=== PATIENT | male | born 1970 | race Caucasian/White ===

== ENCOUNTER 2018-01-31 13:37 | Inpatient (IN) ==
[2018-01-31] MEDS ORDERED: 0.9 % Sodium Chloride 1,000 ML ONE ×3 (13:39→15:32)
[2018-01-31] MEDS ORDERED: *HR* Heparin 5,000 UNIT/ML VIAL IVP PRN ×2 (13:39→13:49)
[2018-01-31] MEDS ORDERED: Aspirin 81 MG TAB.CHEW PO ONE (13:39)
[2018-01-31] MEDS ORDERED: *HR* Heparin 5,000 UNIT/ML VIAL ONE (13:39)
[2018-01-31] MEDS ORDERED: *HR* Ticagrelor 90 MG TABLET PO ONE (13:39)
[2018-01-31] MEDS ORDERED: Aspirin 81 MG TAB.CHEW ONE (13:39)
[2018-01-31] MEDS ORDERED: *HR* Ticagrelor 90 MG TABLET ONE (13:39)
--- NOTE | 2018-01-31 13:43 | Emergency Department Note ---
Disposition Clinical Impression: STEMI (ST elevation myocardial infarction) Qualifiers: Involved coronary artery: unspecified coronary artery Qualified Code(s): I21.3 - ST elevation (STEMI) myocardial infarction of unspecified site Disposition: Admitted As Inpatient Condition: Critical General Adult HPI - General Chief complaint: ED Chest Pain Stated complaint: CHEST PAIN Time Seen by Provider: 01/31/18 13:38 Nursing Notes Reviewed: Yes Vital Signs Reviewed: Yes - Related Data Allergies Allergy/AdvReac Type Severity Reaction Status Date / Time No Known Allergies Allergy Verified 01/31/18 13:57 Course - Reevaluation(s) Reevaluation #1: Attestation note I did independently examine and verified the physical examination findings evaluation workup and disposition of this patient. We had independent face-to- face examination and discussion. The patient was seen with the emergency medicine resident Dr. Stiven Carroll I examined this patient and my medical decision-making was reviewed with the Resident Physician/PARTITION ASSEMBLER/PA. I agree with the documented findings, disposition and treatment plan as described except to the extent set forth below. Briefly: A 7-year-old male inmate at [facility] via EMS for "V. tach". Patient was initially complaining of chest pain had a run of V. tach became almost unresponsive he was shocked several times came back to sinus rhythm. Emergent EKG at bedside upon arrival here showed the patient was awake and alert but slightly altered mental status. EKG shows ST elevation of 2 mm in lead 2 and 3 , aVF was unreadable due to motion artifact. We contacted Dr. Jose Alvarez interventionalists on-call and he agreed to take the patient to the catheter lab. STEMI protocol was initiated. We have provided 30 minutes of critical care service for this patient. Time: 13:57 Vital Signs Temperature 97.9 F 01/31/18 13:38 Pulse Rate 86 01/31/18 13:38 Respiratory Rate 16 01/31/18 13:38 Blood Pressure 156/97 01/31/18 13:38 O2 Sat by Pulse Oximetry 98 01/31/18 13:38 Temperature 97.9 F 01/31/18 13:38 Pulse Rate 86 01/31/18 13:38 Respiratory Rate 16 01/31/18 13:38 Blood Pressure 156/97 01/31/18 13:38 O2 Sat by Pulse Oximetry 98 01/31/18 13:38 Oxygen Delivery Oxygen Delivery Nasal Cannula
--- NOTE | 2018-01-31 13:44 | Emergency Department Note ---
Disposition Clinical Impression: STEMI (ST elevation myocardial infarction) Qualifiers: Involved coronary artery: unspecified coronary artery Qualified Code(s): I21.3 - ST elevation (STEMI) myocardial infarction of unspecified site Disposition: Admitted As Inpatient Condition: Critical Time of Disposition: 13:55 Chest Pain HPI - General Chief Complaint: ED Chest Pain Stated Complaint: CHEST PAIN Time Seen by Provider: 01/31/18 13:38 Source: patient Mode of arrival: ambulatory Limitations: no limitations Vital Signs Reviewed: Yes Nursing Notes Reviewed: Yes - History of Present Illness HPI Narrative: Patient is a 47-year-old male with past medical history of depression, diabetes , hypertension, hyperlipidemia. He presents today via EMS from shelter with concern of inferior STEMI. According to the patient, he started having left jaw pain yesterday. This morning, he awoke with left-sided chest pain that radiated to his back. He also had some sweating with it but denies any other additional symptoms. He told the guards at the shelter that he was having pain. Upon workup at the shelter, EKG showed concern for inferior STEMI. Patient was given a nitroglycerin that helped relieve some of his pain. While in route, EMS states patient was given aspirin 325 mg but the patient states that he did not swallow any pills. He then went unresponsive and was shocked twice due to fine V. fib. Upon arrival to the ED, patient was in normal sinus rhythm and was conversing with us. Currently rates his chest pain as "low" but will not give me a number, will not describe the character for me. Denies any previous history of ND or stents. Denies any other nausea, vomiting, fevers, abdominal pain. - Related Data Allergies Allergy/AdvReac Type Severity Reaction Status Date / Time No Known Allergies Allergy Verified 01/31/18 13:57 All systems ED: reviewed and negative except as stated. Constitutional: Denies: fever Cardiovascular: Reports: chest pain. Denies: palpitations Respiratory: Reports: dyspnea. Denies: cough Gastrointestinal: Denies: abdominal pain, nausea, vomiting, diarrhea Integumentary: Denies: rash Neurological: Denies: headache, weakness, numbness Chest Pain PMH - Past Medical History Medical history: Reports: other Physical Exam - General Limitations: no limitations General appearance: alert, in no apparent distress - Head Head exam: atraumatic, normocephalic, normal inspection - Eye Eye exam: Present: normal appearance, PERRL, EOMI - ENT ENT exam: normal exam, normal oropharynx, mucous membranes moist - Neck Neck exam: Present: normal inspection, full ROM, trachea midline - Chest Chest inspection: Present: normal inspection, symmetric chest wall rise - Respiratory Respiratory exam: Present: normal lung sounds bilaterally - Cardiovascular Cardiovascular exam: Present: regular rate, normal rhythm, normal heart sounds - Abdominal Exam Abdominal exam: Present: soft, Non-Tender. Absent: tenderness, distention, guarding, rebound, rigidity - Extremities Exam Extremities exam: Present: normal inspection, full ROM. Absent: tenderness, pedal edema - Neurological Exam Neurological exam: Present: alert, oriented X3, CN II-XII intact. Absent: motor sensory deficit - Psychiatric Psychiatric exam: Present: normal affect, normal mood - Skin Skin exam: Present: warm, dry, intact, normal color Course Course Narrative: Blood pressure was elevated in 150s on presentation, recheck showed the systolic blood pressure in the 130s. The rest of the vitals were within normal limits. Patient was placed on power pack pads. Patient was in normal sinus rhythm on presentation. Bedside EKG did show ST elevation in leads 2, 3, aVF. We called STEMI alert. Patient was given heparin bolus dosing, [place] to 180 mg. We also gave aspirin 325. EMS states that they gave him aspirin while in route but the patient adamantly denies this. We talked with Dr. Alvarez with cardiology who will take the patient to the [facility]. Patient was stable upon discharge the [facility]. Vital Signs Temperature 97.9 F 01/31/18 13:38 Pulse Rate 86 01/31/18 13:38 Respiratory Rate 16 01/31/18 13:38 Blood Pressure 156/97 01/31/18 13:38 O2 Sat by Pulse Oximetry 98 01/31/18 13:38 Temperature 97.9 F 01/31/18 13:38 Pulse Rate 86 01/31/18 13:38 Respiratory Rate 16 01/31/18 13:38 Blood Pressure 156/97 01/31/18 13:38 O2 Sat by Pulse Oximetry 98 01/31/18 13:38 Oxygen Delivery Oxygen Delivery Nasal Cannula Chest Pain - MDM Narrative Medical decision making narrative: Blood pressure was elevated in 150s on presentation, recheck showed the systolic blood pressure in the 130s. The rest of the vitals were within normal limits. Patient was placed on power pack pads. Patient was in normal sinus rhythm on presentation. Bedside EKG did show ST elevation in leads 2, 3, aVF. We called STEMI alert. Patient was given heparin bolus dosing, [place] to 180 mg. We also gave aspirin 325. EMS states that they gave him aspirin while in route but the patient adamantly denies this. We talked with Dr. Alvarez with cardiology who will take the patient to the Wort Extractor. Patient was stable upon discharge the W[facility] Extractor. - Medical Records Medical records reviewed: Yes I reviewed the patient's medical records. - Lab Data Lab results reviewed: Yes I reviewed the patient's lab results. Result diagrams: 01/31/18 13:56 01/31/18 13:56 - Radiology Data Radiology results reviewed: Yes I reviewed the patient's radiology results. - EKG Data EKG attestation: Yes I reviewed and interpreted this EKG. EKG results narrative: 01/31/2018 at 13:35. Sinus rhythm. Rate 96. CA within normal limits. QRS 94. QTC 392. Mild left axis deviation. ST elevation in leads 2, 3, aVF. Positive STEMI inferior leads.
[2018-01-31] MEDS ORDERED: *HR* FentaNYL (PF) 250 MCG/5 ML VIAL ONE (13:45)
[2018-01-31] MEDS ORDERED: *HR* Midazolam HCl 5 MG/5 ML VIAL IVP ONE (13:45)
[2018-01-31] MEDS ORDERED: Heparin 25,000 UNIT/500 ML D5W 25,000 UNIT/500 ML BAG IVC SCH ×2 (13:45→14:00)
[2018-01-31] MEDS ORDERED: *HR* Heparin 5,000 UNIT/ML VIAL IVP ONE (13:49)
[2018-01-31 14:08] LABS: Basophils # 0.1 K/mcL (0.0-0.2); Basophils % 0.5 %; Eosinophils # 0.4 K/mcL (0.0-0.6); Eosinophils % 3.8 %; Hematocrit 42.9 % (37.5-50.1); Hemoglobin 14.1 g/dL (12.9-16.9); Immature Granulocytes % 0.5 % (0-4); Lymphocytes % 32.6 %; Mean Corpuscular HGB Conc 32.9 g/dL (31.6-35.5); Mean Corpuscular Hemoglobin 29.4 pg (28.0-33.3); Mean Corpuscular Volume 89.4 fL (83.0-100.0); Mean Platelet Volume 10.2 fL (9.4-12.4); Monocytes # 0.7 K/mcL (0.0-1.3); Monocytes % 7.7 %; Neutrophils # 5.1 K/mcL (1.6-8.9); Platelet Count 222 K/mcL (140-400); Red Cell Distribution Width 12.4 % (11.5-14.5); Segmented Neutrophils % 54.9 %
[2018-01-31] MEDS ORDERED: *HR* Bivalirudin 250 MG VIAL IVC ONE (14:10)
[2018-01-31 14:14] LABS: Prothrombin Time 10.7 Seconds (9.4-12.1)
[2018-01-31 14:16] LABS: Activated Partial Thrombo Time 87.4 Seconds (26.0-36.0)
[2018-01-31 14:37] LABS: BUN/Creatinine Ratio 17 (6-26); Blood Urea Nitrogen 15 mg/dL (6-20); Calcium 9.1 mg/dL (8.6-10.3); Carbon Dioxide 21 mEq/L (23-29); Chloride 106 mEq/L (98-107); Glucose 208 mg/dL (70-105); Magnesium 2.1 mg/dL (1.6-2.6); Osmolality,Calculated 291 (280-300); Potassium 4.1 mEq/L (3.5-5.1); Sodium 137 mEq/L (136-145); eGFR For African Americans > 60 (> 60); eGFR For Non-African Americans > 60 (> 60)
--- NOTE | 2018-01-31 15:02 | Pre-Sedation Evaluation ---
Pre-sedation evaluation - Pre-sedation checklist Date of procedure: 01/31/18 Procedure: left heart catheterization Recent Vitals: Last Vital Signs Temp 97.9 F 01/31/18 13:38 Pulse 86 01/31/18 13:38 Resp 16 01/31/18 13:38 BP 156/97 01/31/18 13:38 Pulse Ox 98 01/31/18 13:38 H&P (including ROS) documented in medical record: Yes Previous reaction to sedatives/anesthetics: No Dietary Status: No solid food in preceding 4 hrs and no liquid in preceding 2 hrs Airway Assessment: Patient can open mouth completely, TMJ function normal Dentition: No loose teeth or bridges Possible difficult airway: No ASA Classification *see protocol: CLASS IV-Severe systemic disease/constant threat to pt's life Plan of Care: Pt appropriate candidate for procedure/moderate/conscious sedation , Risks/benefits of procedure/sedation discussed w/ patient/family, If not NPO; Risk of intake outweiged by necessity to perform procedure
--- NOTE | 2018-01-31 15:09 | Invasive Diagnostic Lab Proc ---
Name: Theodore Donald Date of Study: 01/31/2018 Date: 1970 Ht: 75.2in Medical Record#: [id number] Age: 47 Wt: 224.87lb Gender: Male BSA: 2.31 Order #: [id number] BMI: 27.96 Physicians Procedure Physician: Fred Alvarez DO Referring MD: Referring MD: Staff Name Position Time In Sites, Nury RT (R) Monitor 02:16 PM Blake Pagan RN Fluid Jet Cutter Operator 02:16 PM Nadeem Cisneros RN Fluid Jet Cutter Operator 02:16 PM Denice Major RT Scrub 02:16 PM Indications Indication STEMI Procedures Performed Procedure PRQ CARD REVASC PA 1 VSL L HRT ARTERY/VENTRICLE ANGIO PRQ CARD STENT W/ANGIO ADDL Pre-Procedure Checklist Informed consent is complete signed and on chart. H&P is on chart. ID band is on and ID verified with patient. Patient NPO for procedure The procedure was described for the patient and questions were answered. ECG is on chart. Plan of Care Patient will tolerate the procedure without complications. Adequate level of comfort will be maintained. Hemodynamics will remain stable Patient will recover from procedure without complications. Respiratory function will be maintained. Cardiac rhythm will remain stable. Patient temperature will be maintained. Patient and/or family have verbalized understanding of the procedure. Patient Education Intravenous Access Time IV Size Location DC'd Fluid/Drip Rate Units RN 18g 1 1/4" Patent On Arrival Rt Antecubital Blake Pagan RN 20g 1 1/4" Patent On Arrival Lt Hand 0.9NaCl 25 ml/hr Blake Pagan RN Allergies No Known Allergies Vital Signs Time BP (mmHg) HR (bpm) O2 Sat. RR (bpm) LOC 02:17 PM / % 5 = Fully awake and oriented or at pre-proc level 02:10 PM 121 / 72 76 95 % 02:15 PM 115 / 59 71 95 % 02:18 PM 107 / 57 72 93 % 02:20 PM 112 / 64 77 96 % 02:25 PM 113 / 65 75 94 % 02:30 PM 108 / 59 75 96 % 02:35 PM 110 / 58 75 100 % 02:40 PM 112 / 61 80 97 % Procedural Medications Time Medication Dose Units Method Given By 02:06 PM Oxygen 2 L/min nasal cannula Blake Pagan RN 02:06 PM Versed 2 mg Intravenous Blake Pagan RN 02:17 PM Lidocaine 2% 10 ml Subcutaneous Fred Alvarez DO 02:16 PM Heparin 3000 units Intravenous Blake Pagan RN 02:37 PM Dopamine 5 mcg/kg/min Intravenous Blake Pagan RN ASA Classification: Emergent Procedure: ASA score is assumed Alireza Score Preprocedure Postprocedure Activity 2- Moves 4 extremities sustained head lift Activity 2- Moves 4 extremities sustained head lift Circulation 2- SBP +/= 20 points of pre-anesthetic level Circulation 2- SBP +/= 20 points of pre-anesthetic level Consciousness 2- Awake and alert oriented x 3 Consciousness 2- Awake and alert oriented x 3 O2 Saturation 2- Able to maintain O2 satruation of 92% on room air O2 Saturation 2- Able to maintain O2 satruation of 92% on room air Respiratory 2- Able to deep breathe and cough well Respiratory 2- Able to deep breathe and cough well Total Score 10 Total Score 10 Contrast Agent: Isovue Diagnostic Contrast: 150 ml Total Contrast: 150 ml Fluoro Dose: 1461 mGy Activated Clotting Time Time Seconds to Clot 02:24 PM 193 02:38 PM 400 Procedure Log Time Note Enter By 02:02 PM Pt arrived to feed mill lab technician 1 at 14:02 kk 02:02 PM Nury Praekh RT (R) Position: Monitor Time in: 14: 02:02 PM Blake Pagan RN Position: Fluid Jet Cutter Operator Time in: 14: 02:02 PM Nadeem Cisneros RN Position: Fluid Jet Cutter Operator Time in: 14:02 02:02 PM Denice Major RT Position: Scrub Time in: 14:02 02:02 PM Patient charges- Angio tray pack, Navilyst 3mm J, Pulse Oximetry and ACIST tubing and transducer kk 02:02 PM Case Delayed No kk 02:02 PM Physician arrived 14:02 02:02 PM Marcelo and greet completed kk 02:02 PM Procedure start 14:02 kk 02:06 PM PCI Status Emergency tsites 02:06 PM Time: 14:17 Patient comfortable and pain free: Yes [email or web address] 02:06 PM PCI Indication: Immediate PCI for STEMI tsites 02:06 PM Time: 14:06LOC: 5 = Fully awake and oriented or at pre-proc level [email or web address] 02:06 PM Clinical Presentation: STEMI or equivalent [email or web address] 02:06 PM Time out performed according to hospital policy kk 02: PM Time: 14:06 10 ml Lidocaine 2% to right groin Subcutaneous Given by Fred Alvarez DO kkner 02:06 PM Hair removed from procedure site in holding area using clippers. Bilateral groin prepped with Chloraprep by Nury Parekh (R), then patient was draped. Skin intact. kk 02: PM Time: 14:06 Oxygen on at 2 L/min per nasal cannula by Blake Pagan RN kk 02:06 PM Micro-Introducer Kit utilized for sheath placement tsites 02:06 PM Time: 14:06 Versed 2 mg Intravenous Given by Blake Pagan RN cheli 02:09 PM CathStat 02:09 PM Case Start 02:09 PM Vitals capture started with the following parameters, Patient=Adult, Interval=5 min, Initial Rwhskawq=274 mmHg, Deflation Rate=3 mmHg, Cuff placed on Right Arm 02:10 PM HR=76 bpm, XYLC=445/72 mmhg, SpO2=95 % 02:14 PM LCA angiography performed in multiple views. tsites 02:14 PM Access obtained by percutaneous puncture. 6Fr 10cm Terumo Jay sheath placed in right Femoral artery. [id number] tsites 02:14 PM 5Fr FL 4 catheter inserted over the wire [facility] tsites 02:14 PM 0.035 145cm Navilyst 3mmJ wire [id number] tsites 02:15 PM HR=71 bpm, CMTF=124/59 mmhg, SpO2=95.0 % 02:16 PM wire reinserted catheter removed tsites 02:17 PM NIBP STAT measurement started. 02:18 PM Catheter selectively placed in left ventricle tsites 02:18 PM HR=72 bpm, MCLQ=046/57 mmhg, SpO2=93 % 02:19 PM 6Fr JR 4 Runway guide catheter was used to cannulate the PCI vessel successfully. reused? No tsites 02:19 PM Pressure channel 2 zeroed. 02:19 PM Pressure channel 2 zeroed. 02:20 PM Recorded Pressure: LV, HR=77, Condition=Condition 1 (Left Ventricle) LV 84/52/80 02:20 PM Recorded Pressure: LV, Ao, HR=78, Condition=Condition 1 (Left Ventricle) LV 93/41/88, (Aorta) Ao 88/57/70 02:20 PM HR=77 bpm, OCSG=562/64 mmhg, SpO2=96 % 02:21 PM Bolus angiogram of left Ventricle complete: hand injection tsites 02:23 PM Inflation device was opened. tsites 02:23 PM Recorded Pressure: Ao, HR=77, Condition=Condition 1 (Aorta) Ao 85/59/71 02:23 PM RCA angiography performed in multiple views. tsites 02:24 PM At 14:24 the ACT was 193 seconds. tsites 02:24 PM Time: 14:24 Heparin 3000 units Intravenous Given by Blake Pagan RN tsites 02:24 PM 6Fr JL4 Runway guide catheter was used to cannulate the PCI vessel successfully. reused? No tsites 02:24 PM .014 ChoICE PT Extra Support 300cm guide wire across target lesion- successful. reused? No tsites 02:25 PM HR=75 bpm, QCTI=576/65 mmhg, SpO2=94.0 % 02:26 PM Guide wire removed intact. tsites 02:26 PM Guide catheter removed intact. tsites 02:27 PM 6Fr XB LAD 3.5 [place] Bright-Tip guide catheter was used to cannulate the PCI vessel successfully. reused? No tsites 02:27 PM guide wire reinserted tsites 02:30 PM HR=75 bpm, GRGS=869/59 mmhg, SpO2=96 % 02:34 PM 2.25mm x 12mm Synergy drug-eluting stent across target lesion- successful Lot #[id number] tsites 02:34 PM Stent deployed @ 12 abigail for 15 seconds tsites 02:35 PM HR=75 bpm, PBUK=249/58 mmhg, YeC0=194 % 02:35 PM Lesion found in Proximal Circumflex. Pre Stenosis: 80 Pre ELAINE Flow: 2: Partial Flow/Perfusion (> 1 but < 3) tsites 02:36 PM Lesion found in 1st Marginal. Pre Stenosis: 70 Pre ELAINE Flow: 3: Complete and Brisk Flow/Perfusion tsites 02:37 PM 2.5mm x 16mm Synergy drug-eluting stent across target lesion- successful Lot #[id number] tsites 02:37 PM Stent deployed @ 14 abigail for 15 seconds tsites 02:37 PM Time: 14:37 Dopamine 5 mcg/kg/min Intravenous Given by Blake Pagan RN Gordon pump tsites 02:38 PM At 14:38 the ACT was 400 seconds. tsites 02:40 PM Bolus angiogram of right Femoral complete: 2 ml/sec for a total of 4 mls tsites 02:40 PM HR=80 bpm, QRJZ=622/61 mmhg, SpO2=97 % 02:42 PM no labs prior to cath tsites 02:47 PM Procedure completed at 14:47 tsites 02:47 PM Did you address ELAINE flow and Dominance? Yes tsites 02:48 PM Sign out completed: Radiation Dose 1461 mGy Fluoro Time: 6.7 Isovue 370 - 200ml contrast 150 ml given by Fred Alvarez DO. Complications: NoneCardiac Rehab Consult needed: YesConfirmed administered medications: Yes tsites 02:48 PM Isovue 370 - 200ml,1 Bottle(s) used. tsites 02:48 PM Sheath left in place to be pulled on floor/holding areaV+Pad tsites 02:48 PM Estimated Blood Loss: less than 20cc tsites 02:48 PM Post ECG NSR tsites 02:50 PM Post Blood Pressure 112/61 tsites 02:50 PM 14:50 Post Pulses Bilateral DP & PT 2+ tsites 02:50 PM Information taught Cardiac Cath and PCI tsites 02:50 PM Education needs Procedure, Plan of Care, and Responsibilities of Patient in Care tsites 02:50 PM Learning barriers :None tsites 02:50 PM Education Methods Verbal tsites 02:50 PM Education evaluation Able to repeat information tsites 02:50 PM Site status No bleeding/hematoma - Rt Groin as reported by Denice Major RT at 14:50 tsites 02:50 PM Opsite applied tsites 02:52 PM Plavix, Effient or Brilinta given Yes in er tsites 02:52 PM Delay to floor No tsites 02:52 PM Patient out of room: 14:52 tsites 02:52 PM no family tsites 02:56 PM Report given to og BUSTAMANTE Pt taken to ICU Room #12. 14:56 tsites Complications Complication None Hemodynamics Pressures Site Systolic/A Wave Diastolic/V Wave Mean LV 84 52 80 LV 93 41 88 AO 88 57 70 AO 85 59 71 Post Procedure Information Blood Pressure: 112/61 mmHg Rhythm: NSR Post procedural instructions were given Closure Device Time Device Success/Fail 01/31/2018 2:56:00 PM Manual Compression Site Checks Time Location Status Staff Sheath In? Note 02:50 PM Rt Groin No bleeding/hematoma Denice Major RT Pulses Time Site Pre-Procedure Post-Procedure Note 2:50:00 PM Bilateral DP & PT 2+ Updated by Nury Sites, RT (R) on 01/31/2018 3:01:01 [facility] signed on 01/31/2018 3:03:35 PM with status of Final
--- NOTE | 2018-01-31 15:21 | Cardiology History & Physical ---
Date of Encounter: 01/31/18 Time of Encounter: 14:00 Assessment and Plan (1) Diabetes mellitus Current Visit: Yes Status: Chronic The assessment and plan as outlined above was discussed with the patient and/or family members who expressed understanding and agreement. All questions were answered. ON metformin, will hold post cath, consult IM for mangement. 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 All questions were answered. INcrease atorvastatin from 20 to 40 mg q d Qualifiers: Hyperlipidemia type: mixed hyperlipidemia Qualified Code(s): E78.2 - Mixed hyperlipidemia (3) Depression (emotion) Current Visit: Yes Status: Chronic The assessment and plan as outlined above was discussed with the patient and/or family members who expressed understanding and agreement. All questions were answered. Pt on effexor, will hold due to V tach earlier today. Qualifiers: Depression Type: reactive depression Qualified Code(s): F32.9 - Major depressive disorder, single episode, unspecified (4) STEMI (ST elevation myocardial infarction) Current Visit: Yes Status: Acute The assessment and plan as outlined above was discussed with the patient and/or family members who expressed understanding and agreement. All questions were answered. Discussed risks and benefits, pt will undergo emergent LHC/poss. Qualifiers: Involved coronary artery: other inferior wall coronary artery Qualified Code(s): I21.19 - ST elevation (STEMI) myocardial infarction involving other coronary artery of inferior wall History of Present Illness Chief complaint: Chest pain HPI: Mr. Donald is a 47 year old male who presented to the ER by squad from the local detention, with complaints of new onset chest pain, mid epigastric, with left jaw pain, starting one day ago while at rest, lasted fifteen to twenty minutes, then resolved spontaneously. He awoke with reoccurrence of chest pain , mid epigastric, 8/10 this am, pain radiated into his back, associated with nausea and diaphoresis. This mornings chest pain lasted approximately 30 mins before pt called for help. Pt taken to [facility], had an EKG suggestive of acute inferior ST Seg PR, and the squad was called for transport to [facility]. PT received one sl ntg with improvement in his pain from 8 to 4. En route to ER he had two episodes of fine V tack, with confusion and LOC, both responded to DC cardioversion with quaker of NSR. At presentation he is experiencing 4/ 10 chest pain, is mildly nauseous. This is his first episode of chest discomfort. HIs past medical history includes diabetes, hypertension, depression, hyperlipidemia and depression. Past Med Surg Social Fam HX - Past Medical History Source: patient, old records reviewed Medical history: diabetes (depression, gout), other Psychiatric history: no psych history, depression - Social History Smoking Status: Never smoker Smokeless Tobacco Status: No Alcohol use: none Drug use: none Occupational status: other (incarcerated) Current living situation: Other (Intermediate) Activity Level: Independent ambulation Medications and Allergies metFORMIN 500 mg PO 12XD 01/31/18 [History] 3 Allergy/AdvReac Type Severity Reaction Status Date / Time No Known Allergies Allergy Verified 01/31/18 13:57 ROS unobtainable: due to mental status All Systems Review: The remainder of the systems were reviewed and are negative - Cardiovascular Cardiovascular: as per HPI Physical Examination General: Conversant, Other (pt mildly confused, orientates easily. ) HEENT: Atraumatic, Normocephaly Neck: No JVD Cardiac: Reg Rate and Rhythm, Normal S1 and S2 Lungs: Normal Breath Sounds, No Wheeze, Rales, Rhonchi Neuro: Alert and responsive Abdomen: Soft Extremities: No Clubbing, No Cyanosis, No Edema, Normal Pulses Results 01/31/18 13:56 01/31/18 13:56 Lab Results 01/31/18 01/31/18 01/31/18 13:56 13:56 13:56 WBC 9.3 Hgb 14.1 Hct 42.9 Plt Count 222 INR 1.0 APTT 87.4 H Sodium 137 Potassium 4.1 Chloride 106 Carbon Dioxide 21 L BUN 15 Creatinine 0.86 Glucose 208 H Calcium 9.1 Magnesium 2.1 Troponin I 1.00 H* - EKG Interpretation EKG results cardiology: personally reviewed (NSR with ST seg elevation inf leads , suspect inf PR.)
[2018-01-31] MEDS ORDERED: ISOVUE-370 200 ML INFUS..BTL IV ONE (15:32)
[2018-01-31] MEDS ORDERED: *HR* Heparin 10,000 UNIT/10 ML VIAL ONE (15:32)
[2018-01-31] MEDS ORDERED: Heparin 1,000 UNITS/500 mL 500 ML ONE (15:32)
[2018-01-31] MEDS ORDERED: Nitroglycerin 1,000 MCG/10 ML VIAL IV ONE (15:33)
[2018-01-31] MEDS ORDERED: Nitroglycerin 0.4 MG TAB.SUBL SL PRN (16:19)
[2018-01-31] MEDS: 0.9 % Sodium Chloride 1,000 ML IVC SCH (18:05)
[2018-01-31] MEDS: *HR* Ticagrelor 90 MG TABLET PO SCH (19:55)
[2018-02-01] MEDS: 0.9 % Sodium Chloride 1,000 ML IVC SCH (03:20)
[2018-02-01] MEDS: *HR* Ticagrelor 90 MG TABLET PO SCH ×2 (08:22→20:03)
[2018-02-01] MEDS ORDERED: Aspirin 81 MG TAB.CHEW PO SCH (09:00)
--- NOTE | 2018-02-01 10:01 | Cardiology Progress Note ---
Date of Encounter: 02/01/18 Time of Encounter: 09:59 Assessment and Plan (1) STEMI (ST elevation myocardial infarction) Current Visit: Yes Status: Acute Patient presents by EMS from [facility] with chest pain. Seen to have VT and shocked several times in route per report. No rythm strips for review. Found to have acute STEMI on EKG in ED. EKG with possible acute inferior MS. S/p emergent LHC 01/31/18. He received PCI to the proximal Lcx artery and OM. No other lesions seen. EF 50%. There was no complication from procedure. Denies recurrent chest pain. Telemetry shows NSR. 18 beat run IVCD. No bradycardia or pauses. TTE pending. Cardiac rehab ordered. Importance of DAPT with asa and brilinta uninterrupted for minimum of one year reviewed with patient (correctional facility officers at bedside). Continue statin and bb. Step down to cardiopulmonary telemetry floor today. Possible d/c in the morning. Qualifiers: Involved coronary artery: other inferior wall coronary artery Qualified Code(s): I21.19 - ST elevation (STEMI) myocardial infarction involving other coronary artery of inferior wall (2) Diabetes mellitus Current Visit: Yes Status: Chronic The assessment and plan as outlined above was discussed with the patient and/or family members who expressed understanding and agreement. All questions were answered. ON metformin, will hold for 72 hrs post cath. SSI. Qualifiers: Diabetes mellitus type: type 2 Diabetes mellitus oil winterizer insulin use: without oil winterizer use Diabetes mellitus complication status: without complication Qualified Code(s): E11.9 - Type 2 diabetes mellitus without complications (3) Hyperlipidemia Current Visit: Yes Status: Chronic The assessment and plan as outlined above was discussed with the patient and/or family members who expressed understanding and agreement. All questions were answered. Atorvastatin increased from 20 to 40 mg q d Qualifiers: Hyperlipidemia type: mixed hyperlipidemia Qualified Code(s): E78.2 - Mixed hyperlipidemia (4) Depression (emotion) Current Visit: Yes Status: Chronic The assessment and plan as outlined above was discussed with the patient and/or family members who expressed understanding and agreement. All questions were answered. Pt on effexor, will hold due to V tach prior to [facility]. Qualifiers: Depression Type: reactive depression Qualified Code(s): F32.9 - Major depressive disorder, single episode, unspecified Discussion w patient/family: The assessment and plan as outlined above was discussed with the patient and/or family members who expressed understanding and agreement. All questions were answered. Thank you for involving us in the care of your patient. Please call with any questions. Plan of care and assessment reviewed with Dr. Monzon. Subjective Principal diagnosis: STEMI Interval history: No events overnight. Denies chest pain or SOB. No problem noted with right femoral access site. Objective Vital Signs, Last 4 Hours Temp Pulse Resp BP Pulse Ox 02/01/18 08:16 97.9 F 70 12 126/77 95 02/01/18 08:00 97.9 F 02/01/18 06:00 60 12 119/71 95 General: Conversant, No Apparent Distress HEENT: Atraumatic, Normocephaly, Mucus Membranes Moist Neck: No JVD, Normal carotid pulses Cardiac: Reg Rate and Rhythm, Normal S1 and S2, No Murmur Lungs: Normal Breath Sounds, No Wheeze, Rales, Rhonchi Neuro: Alert and responsive, No focal deficits noted Abdomen: Soft, Non-Tender Skin: No rashes noted on visualized skin Musculoskeletal: No Chest Wall Tenderness Extremities: No Clubbing, No Cyanosis, No Edema, Normal Pulses, Other (Right femoral access dressing removed. No hematoma or ecchymosis. ) Results 01/31/18 13:56 01/31/18 13:56 Lab Results 01/31/18 01/31/18 01/31/18 13:56 13:56 13:56 WBC 9.3 Hgb 14.1 Hct 42.9 Plt Count 222 INR 1.0 APTT 87.4 H Sodium 137 Potassium 4.1 Chloride 106 Carbon Dioxide 21 L BUN 15 Creatinine 0.86 Glucose 208 H Calcium 9.1 Magnesium 2.1 Troponin I 1.00 H* - Imaging and Cardiology Echo: pending Cardiac cath: report reviewed - EKG Interpretation EKG results cardiology: personally reviewed Consult Discharge Plan - Plan Referrals: NONE,PCP [Primary Care Provider] -
[2018-02-01] MEDS ORDERED: Dextrose Gel 15 GM/37.5 ML TUBE PO PRN ×4 (10:10→11:01)
[2018-02-01] MEDS ORDERED: D5% in Water 1,000 ML IVC PRN ×2 (10:10→11:01)
[2018-02-01] MEDS ORDERED: *HR* Dextrose 50 % in Water (Syg) 50 ML SYRINGE IVP PRN ×2 (10:10→11:01)
[2018-02-01 10:36] LABS: Basophils % 0.3 %; Eosinophils # 0.1 K/mcL (0.0-0.6); Eosinophils % 1.2 %; Hematocrit 40.6 % (37.5-50.1); Hemoglobin 13.8 g/dL (12.9-16.9); Immature Granulocytes % 0.4 % (0-4); Lymphocytes # 1.3 K/mcL (0.6-4.6); Lymphocytes % 13.3 %; Mean Corpuscular Hemoglobin 29.9 pg (28.0-33.3); Mean Corpuscular Volume 88.1 fL (83.0-100.0); Mean Platelet Volume 10.3 fL (9.4-12.4); Monocytes # 0.6 K/mcL (0.0-1.3); Neutrophils # 7.7 K/mcL (1.6-8.9); Platelet Count 215 K/mcL (140-400); Red Blood Count 4.61 M/mcL (4.19-5.50); Red Cell Distribution Width 12.7 % (11.5-14.5); Segmented Neutrophils % 78.8 %
[2018-02-01 10:52] LABS: BUN/Creatinine Ratio 11 (6-26); Blood Urea Nitrogen 10 mg/dL (6-20); Calcium 8.7 mg/dL (8.6-10.3); Carbon Dioxide 22 mEq/L (23-29); Chloride 109 mEq/L (98-107); Glucose 388 mg/dL (70-105); Osmolality,Calculated 301 (280-300); Sodium 138 mEq/L (136-145); eGFR For African Americans > 60 (> 60); eGFR For Non-African Americans > 60 (> 60)
[2018-02-01] MEDS ORDERED: 0.9 % Sodium Chloride 1,000 ML IVC SCH (11:01)
[2018-02-01] MEDS ORDERED: Nitroglycerin 0.4 MG TAB.SUBL SL PRN (11:01)
[2018-02-01] MEDS ORDERED: Insulin LISPRO 300 UNITS/3 ML VIAL SQ SCH ×2 (11:30→21:00)
[2018-02-01] MEDS: Insulin LISPRO 300 UNITS/3 ML VIAL SQ SCH ×2 (12:41→16:50)
--- NOTE | 2018-02-01 15:40 | Internal Medicine Consult Note ---
Addendum entered and electronically signed by Octavio Marie CNP 16:40: D/t pts. use of Effexor >6 months, taper schedule should be as follows: 75 mg daily starting today for the next 14 days, then taper down to 37.5 mg daily for 14 days before discontinuing. Original Note: <Octavio Marie - Last Filed: 02/01/18 16:17> Date of Encounter: 02/01/18 Time of Encounter: 15:00 - Assessment and Plan (1) STEMI (ST elevation myocardial infarction) Current Visit: Yes Status: Acute Assessment and plan: Status post-C w/o complications. Patient received PCI to the proximal Lcx each artery and OM. No other lesions seen. EF 50%. There were no complications from [facility] procedure. Site appears to be healing well w/o hematoma, erythema, or bleeding. Continue to monitor pt. and VS. Pt. discussed w/Dr. Rich who agrees w/ plan of care. Pt. is moderate risk for further morbidity based on recent [facility] d/ t STEMI, hx, and risk factors of HLD, HTN, and DM. Inpatient. Qualifiers: Involved coronary artery: other inferior wall coronary artery Qualified Code(s): I21.19 - ST elevation (STEMI) myocardial infarction involving other coronary artery of inferior wall (2) Cough Current Visit: Yes Status: Acute Assessment and plan: Acute cough on exam. Lung dalton clear on auscultation. Mucinex ordered. (3) Diabetes mellitus Current Visit: Yes Status: Chronic Assessment and plan: Hx of chronic diabetes controlled by Metformin. Metformin held and low-dose correction sliding scale insulin and hypoglycemic protocol ordered. BG checks ACHS. BG today 388. Will add Levemir 10 units BID with first dose starting now. Continue to monitor BG. Qualifiers: Diabetes mellitus type: type 2 Diabetes mellitus intermodal dispatcher insulin use: without intermodal dispatcher use Diabetes mellitus complication status: without complication Qualified Code(s): E11.9 - Type 2 diabetes mellitus without complications (4) HTN (hypertension) Current Visit: Yes Status: Chronic Assessment and plan: Hx of chronic HTN. Monitor pt. and VS. Pt. does not currently take HTN medications. Will monitor VS and add hydralazine 10 mg IVP Q6HR PRN if SBP >180 and/or DBP >110. Qualifiers: Hypertension type: essential hypertension Qualified Code(s): I10 - Essential (primary) hypertension (5) Hyperlipidemia Current Visit: Yes Status: Chronic Assessment and plan: Hx of chronic HLD. Lipid panel in a.m. labs. Continue Lipitor. Qualifiers: Hyperlipidemia type: pure hypercholesterolemia Qualified Code(s): E78.00 - Pure hypercholesterolemia, unspecified; E78.0 - Pure hypercholesterolemia (6) Depression Current Visit: Yes Status: Chronic Assessment and plan: Hx of chronic depression. Pt. takes Effexor d/t depression but was experiencing V-tach prior to LHC. Pt. did not receive dosing yesterday. D/t Effexor abrupt discontinuation being contraindicated, will wean pts. dosing from 150 mg daily to 75 mg and Friday, then 37.5 mg Friday and Friday, then stop. Discussed plan w/pt. who is in agreement and voiced understanding. Qualifiers: Depression Type: unspecified Qualified Code(s): F32.9 - Major depressive disorder, single episode, unspecified (7) DVT prophylaxis Current Visit: Yes Status: Acute Assessment and plan: Pt. placed on Brilinta post-LHC and heparin SQ for DVT prophylaxis. Monitor pt. for signs of bleeding. Internal Medicine - CN: HPI - Data of Consult Patient: new to practice Consult date: 02/01/18 Requesting Physician: Amarilis Gabriel MD - Consult Narrative Reason for consult: Medical mgmt of depression and diabetes History of present illness: Mr. Donald is a 47 year old male w/PMH of DM, HTN, HLD, and depression who was brought to [facility] from alf w/STEMI. Pt. experienced left-sided CP w/radiation to back, SOB, and diaphoresis. Given nitro and aspirin. According to notes, pt. became unresponsive and required shock x2 for Vfib. Pt. received heart cath on 01/31/18 with PCI to the proximal LCx artery and OM. No other lesions seen. EF 50%. There was no complication from heart catheter procedure. Pt. denies current CP, SOB, or other discomfort rather than cough. Pts. BG 388 today and will need managed while inpatient and post-discharge. Pt. currently takes Metformin only. Pt. denies fever, chills, nausea, vomiting, changes in vision, headache, abdominal pain, numbness, tingling, diarrhea, constipation, unusual bleeding, dizziness, lightheadedness, pre-syncope, syncope. Past Med Surg Social Fam HX - Past Medical History Source: patient, old records reviewed Medical history: diabetes (depression, gout), hyperlipidemia, hypertension, other Psychiatric history: depression - Social History Smoking Status: Never smoker Smokeless Tobacco Status: No Alcohol use: none Drug use: none Current living situation: Other ([facility]) Activity Level: Independent ambulation Recent Out of Country Travel Within the Last 8 Weeks: No Exposure or Possible Exposure to Illness During Travel: No - Family History Father Race: Family Member Ethnicity: Non- Living Status: Still Living Hx Family Cardiac Disorders: Yes (Quad bypass, HLD, HTN) Grandfather Race: Family Member Ethnicity: Non- Living Status: Hx Family Endocrine Disorder: Yes (DM) Mother Race: Family Member Ethnicity: Non- Living Status: Still Living Hx Family Musculoskeletal Disorders: Yes (Osteoporosis) Brother Race: Family Member Ethnicity: Non- Living Status: Still Living Hx Family Medical Disorders: No - Constitutional Constitutional: as per HPI - EENT Eyes: as per HPI Ears: as per HPI Nose, mouth and throat: as per HPI - Breasts Breasts: as per HPI - Cardiovascular Cardiovascular ROS IM: as per HPI - Respiratory Respiratory: as per HPI - Gastrointestinal Gastrointestinal: as per HPI - Genitourinary Genitourinary ROS male: as per HPI - Musculoskeletal Musculoskeletal ROS IM: as per HPI - Integumentary Integumentary IM: as per HPI - Neurological Neurological ROS: as per HPI - Psychiatric Psychiatric: as per HPI - Endocrine Endocrine IM: as per HPI - Hematologic/Lymphatic Hematologic/Lymphatic: as per HPI - Allergic/Immunologic Allergic/Immunologic: as per HPI Internal Medicine - CN: Meds metFORMIN 500 mg PO BID 01/31/18 [History] Allopurinol [Zyloprim 100 MG] 100 mg PO DAILY 02/01/18 [History] Atorvastatin [Lipitor] 20 mg PO DAILY 02/01/18 [History] Venlafaxine [Effexor] 150 mg PO DAILY 02/01/18 [History] 3 Allergy/AdvReac Type Severity Reaction Status Date / Time No Known Allergies Allergy Verified 01/31/18 13:57 Internal Medicine - CN: Exam - Constitutional Vitals: Temp Pulse Resp BP Pulse Ox 98.3 F 68 20 116/76 96 02/01/18 11:53 02/01/18 11:53 02/01/18 11:53 02/01/18 11:53 02/01/18 11:53 General appearance IM: Present: cooperative, A&O X 3, pleasant, no acute distress, obese, answers questions appropriately - Head Head exam: Present: atraumatic, normal inspection - Eye Eye exam: Present: normal appearance, PERRL, conjuntiva pink, sclera anicteric Pupils: Present: normal accommodation, PERRL - ENT ENT exam: Present: mucous membranes dry, normal exam - Neck Neck exam general surgery: Present: normal inspection, supple, trachea midline - Respiratory Respiratory exam: Present: CTAB - Cardiovascular Cardiovascular exam IM: Present: RRR, +S1, +S2 - GI/Abdominal GI/Abdominal exam IM: Present: normal bowel sounds, soft, no peritoneal signs - Rectal Rectal exam: Present: deferred - Additional comments: exam deferred. - Extremities Exam Extremities exam IM: Present: warm, radial pulses palpable and symmetrical - Back Exam Back exam: Present: normal inspection - Neurological Exam Neurological exam: Present: alert, CN II-XII intact, oriented X3, no focal deficits, strengths equal and symetr throughout - Psychiatric Psychiatric exam: Present: normal affect, normal mood - Skin Skin exam IM: Present: dry, intact Internal Medicine - CN: Reslt - Labs CBC & Chem 7: 02/01/18 10:19 02/01/18 10:19 Labs: Short CBC 02/01/18 Range/Units 10:19 WBC 9.7 (4.3-11.1) K/mcL Hgb 13.8 (12.9-16.9) g/dL Hct 40.6 (37.5-50.1) % Plt Count 215 (140-400) K/mcL Neutrophils # 7.7 (1.6-8.9) K/mcL BMP 02/01/18 10:19 Sodium 138 Potassium 4.0 Chloride 109 H Carbon Dioxide 22 L BUN 10 Creatinine 0.88 Glucose 388 H Calcium 8.7 - ABG Interpretation ABG results: PT/INR, D-dimer PT 10.7 Seconds (9.4-12.1) 01/31/18 13:56 - EKG Data EKG comments: 02/01/18 15:50 EKG dated 01/31/18 shows supraventricular rhythm and anterior myocardial infarction of indeterminate age. EKG indicative for STEMI. Consult Discharge Plan - Plan Referrals: NONE,PCP [Primary Care Provider] - <Tonny Rich - Last Filed: 02/01/18 17:21> Date of Encounter: 02/01/18 Internal Medicine - CN: HPI - Data of Consult Requesting Physician: Amarilis Gabriel MD - Consult Narrative History of present illness: Mr. Donald is a 47 year old male Internal Medicine - CN: Exam - Constitutional Vitals: Temp Pulse Resp BP Pulse Ox 98.4 F 75 20 119/72 97 02/01/18 16:00 02/01/18 16:00 02/01/18 16:00 02/01/18 16:00 02/01/18 16:00 Internal Medicine - CN: Reslt - Labs CBC & Chem 7: 02/01/18 10:19 02/01/18 10:19 Labs: Short CBC 02/01/18 Range/Units 10:19 WBC 9.7 (4.3-11.1) K/mcL Hgb 13.8 (12.9-16.9) g/dL Hct 40.6 (37.5-50.1) % Plt Count 215 (140-400) K/mcL Neutrophils # 7.7 (1.6-8.9) K/mcL BMP 02/01/18 10:19 Sodium 138 Potassium 4.0 Chloride 109 H Carbon Dioxide 22 L BUN 10 Creatinine 0.88 Glucose 388 H Calcium 8.7 - ABG Interpretation ABG results: PT/INR, D-dimer PT 10.7 Seconds (9.4-12.1) 01/31/18 13:56 - Attending Attestation Patient is seen and examined independently. Patient reported that he had some withdrawal symptoms when he missed a dose of Effexor, he has been taking Effexor for over last 8 months. We discussed to taper off Effexor, edwardo gamez. He was on Celexa before and he is going to follow up with his psychiatrist, may have to switch to Celexa. Case discussed the was physician oral surgery assistant, I agree with H&P. we will taper off Effexor over 4 weeks period.
[2018-02-01] MEDS ORDERED: Insulin DETEMIR 100 UNIT/ML X5UNITS SQ SCH ×2 (16:00→21:00)
[2018-02-01] MEDS: *HR* Heparin 5,000 UNIT/ML VIAL SQ SCH (16:49)
[2018-02-01] MEDS ORDERED: *HR* Heparin 5,000 UNIT/ML VIAL SQ SCH (18:00)
[2018-02-02 04:42] LABS: Basophils % 0.4 %; Eosinophils # 0.3 K/mcL (0.0-0.6); Hematocrit 41.2 % (37.5-50.1); Hemoglobin 13.8 g/dL (12.9-16.9); Immature Granulocytes % 0.4 % (0-4); Lymphocytes % 21.1 %; Mean Corpuscular HGB Conc 33.5 g/dL (31.6-35.5); Mean Corpuscular Hemoglobin 29.4 pg (28.0-33.3); Mean Corpuscular Volume 87.8 fL (83.0-100.0); Mean Platelet Volume 10.3 fL (9.4-12.4); Monocytes # 0.8 K/mcL (0.0-1.3); Monocytes % 8.8 %; Neutrophils # 6.2 K/mcL (1.6-8.9); Platelet Count 227 K/mcL (140-400); Red Blood Count 4.69 M/mcL (4.19-5.50); Red Cell Distribution Width 12.9 % (11.5-14.5); Segmented Neutrophils % 66.3 %
[2018-02-02 05:02] LABS: Alanine Aminotransferase 35 Units/L (7-52); Albumin 3.8 g/dL (3.5-5.7); Albumin/Globulin Ratio 1.8 (1.1-2.2); Alkaline Phosphatase 71 Units/L (34-104); Aspartate Amino Transferase 29 Units/L (13-39); BUN/Creatinine Ratio 16 (6-26); Bilirubin,Total 0.6 mg/dL (0.3-1.0); Blood Urea Nitrogen 11 mg/dL (6-20); Calcium 8.9 mg/dL (8.6-10.3); Carbon Dioxide 24 mEq/L (23-29); Chloride 109 mEq/L (98-107); Chol/HDL Ratio 3.8 (0-4.9); Cholesterol 129 mg/dL (< 200); Globulin 2.1 g/dL (2.4-3.5); Glucose 148 mg/dL (70-105); HDL Cholesterol 34 mg/dL (40-59); LDL Cholesterol,Calculated 73 mg/dL (0-99); Osmolality,Calculated 290 (280-300); Potassium 3.9 mEq/L (3.5-5.1); Sodium 139 mEq/L (136-145); Total Protein 5.9 g/dL (6.4-8.9); Triglycerides 112 mg/dL (< 150); eGFR For African Americans > 60 (> 60); eGFR For Non-African Americans > 60 (> 60)
[2018-02-02] MEDS: *HR* Heparin 5,000 UNIT/ML VIAL SQ SCH (05:30)
[2018-02-02 06:56] VITALS: BP 128/86
[2018-02-02 08:35] LABS: Estimated Average Glucose 160 mg/dl; Hemoglobin A1C 7.2 %
[2018-02-02] MEDS: Insulin LISPRO 300 UNITS/3 ML VIAL SQ SCH (08:36)
[2018-02-02] MEDS: *HR* Ticagrelor 90 MG TABLET PO SCH (08:37)
--- NOTE | 2018-02-02 08:48 | Internal Med Progress Note ---
<Ray De La Torre - Last Filed: 02/02/18 10:11> Date of Encounter: 02/02/18 Time of Encounter: 08:46 - Assessment and plan (1) STEMI (ST elevation myocardial infarction) Current Visit: Yes Status: Acute Assessment and plan: S/p LHC with PCI to the proximal left circumflex artery Chest pain has resolved s/p, pt is hemodynamically stable Cardiology to manage Qualifiers: Involved coronary artery: other inferior wall coronary artery Qualified Code(s): I21.19 - ST elevation (STEMI) myocardial infarction involving other coronary artery of inferior wall (2) Diabetes mellitus Current Visit: Yes Status: Chronic Assessment and plan: Hx of DM, well controlled over this stay Additionally, A1C is 7.2, indicating very good control as outpatient Recommend continued home meds as outpatient of Metformin 500mg PO BID Continue SSI at this time Qualifiers: Diabetes mellitus type: type 2 Diabetes mellitus meterman insulin use: without meterman use Diabetes mellitus complication status: without complication Qualified Code(s): E11.9 - Type 2 diabetes mellitus without complications (3) HTN (hypertension) Current Visit: Yes Status: Chronic Assessment and plan: Hx of chronic HTN. Monitor pt. and VS. Pt. does not currently take HTN medications. Will monitor VS and add hydralazine 10 mg IVP Q6HR PRN if SBP >180 and/or DBP >110. Qualifiers: Hypertension type: essential hypertension Qualified Code(s): I10 - Essential (primary) hypertension (4) Hyperlipidemia Current Visit: Yes Status: Chronic Assessment and plan: Hx of chronic HLD. Lipid panel in a.m. labs. Continue Lipitor. Qualifiers: Hyperlipidemia type: pure hypercholesterolemia Qualified Code(s): E78.00 - Pure hypercholesterolemia, unspecified; E78.0 - Pure hypercholesterolemia (5) Depression (emotion) Current Visit: Yes Status: Chronic Assessment and plan: Hx of chronic depression, patient is on effexor at home He did have V-tach/v-fib prior to [facility] Discontinuation abruptly is associated with discontinuation syndrome We will slowly taper this medication, replacement per PCP Effexor taper schedule: 75 mg daily starting today for the next 14 days, then taper down to 37.5 mg daily for 14 days before discontinuing Qualifiers: Depression Type: reactive depression Qualified Code(s): F32.9 - Major depressive disorder, single episode, unspecified (6) DVT prophylaxis Current Visit: Yes Status: Acute Assessment and plan: sq heparin - Subjective Interval history: The patient is doing very well today, and says that he feels like nothing has really changed from the day before. He has no acute complaints. - Constitutional Vitals: Temp Pulse Resp BP Pulse Ox 98.4 F 69 17 128/86 96 02/02/18 06:49 02/02/18 06:49 02/02/18 06:49 02/02/18 06:49 02/02/18 06:49 General appearance: Present: cooperative, A&O X 3, pleasant, no acute distress, obese, answers questions appropriately Exam: Gen: Vitals noted. No acute distress. AAOx3 HEENT: PERRL/EOMI, oropharynx clear, Normocephalic, atraumatic Neck: Supple. No adenopathy. Cardiac: RRR, no murmur, +S1/S2 Pulmonary: CTA bilaterally, no wheezes, rales or rhonchi, equal chest expansion Abdomen: soft, nontender, BS noted, no guarding Back: Nontender throughout. MSK: ROM intact, no joint swelling noted Extremities: no BLE edema, nontender calf, no cyanosis or clubbing Neuro: A&Ox3, moves all extremities, no focal deficits Psych: Appropriate mood and behavior Internal Medicine: Result - Labs CBC & Chem 7: 02/02/18 03:41 02/02/18 03:41 Labs: Short CBC 02/01/18 02/02/18 Range/Units 10:19 03:41 WBC 9.7 9.3 (4.3-11.1) K/mcL Hgb 13.8 13.8 (12.9-16.9) g/dL Hct 40.6 41.2 (37.5-50.1) % Plt Count 215 227 (140-400) K/mcL Neutrophils # 7.7 6.2 (1.6-8.9) K/mcL BMP 02/01/18 02/02/18 10:19 03:41 Sodium 138 139 Potassium 4.0 3.9 Chloride 109 H 109 H Carbon Dioxide 22 L 24 BUN 10 11 Creatinine 0.88 0.70 Glucose 388 H 148 H Calcium 8.7 8.9 Liver Function 02/02/18 Range/Units 03:41 Total Bilirubin 0.6 (0.3-1.0) mg/dL AST 29 (13-39) Units/L ALT 35 (7-52) Units/L Alkaline Phosphatase 71 (34-104) Units/L Albumin 3.8 (3.5-5.7) g/dL - ABG Interpretation ABG results: PT/INR, D-dimer PT 10.7 Seconds (9.4-12.1) 01/31/18 13:56 Consult Discharge Plan - Plan Referrals: NONE,PCP [Primary Care Provider] - <Rob Myers H - Last Filed: 02/02/18 10:36> Date of Encounter: 02/02/18 - Constitutional Vitals: Temp Pulse Resp BP Pulse Ox 98.4 F 69 17 128/86 96 02/02/18 06:49 02/02/18 06:49 02/02/18 06:49 02/02/18 06:49 02/02/18 06:49 Internal Medicine: Result - Labs CBC & Chem 7: 02/02/18 03:41 02/02/18 03:41 Labs: Short CBC 02/01/18 02/02/18 Range/Units 10:19 03:41 WBC 9.7 9.3 (4.3-11.1) K/mcL Hgb 13.8 13.8 (12.9-16.9) g/dL Hct 40.6 41.2 (37.5-50.1) % Plt Count 215 227 (140-400) K/mcL Neutrophils # 7.7 6.2 (1.6-8.9) K/mcL BMP 02/01/18 02/02/18 10:19 03:41 Sodium 138 139 Potassium 4.0 3.9 Chloride 109 H 109 H Carbon Dioxide 22 L 24 BUN 10 11 Creatinine 0.88 0.70 Glucose 388 H 148 H Calcium 8.7 8.9 Liver Function 02/02/18 Range/Units 03:41 Total Bilirubin 0.6 (0.3-1.0) mg/dL AST 29 (13-39) Units/L ALT 35 (7-52) Units/L Alkaline Phosphatase 71 (34-104) Units/L Albumin 3.8 (3.5-5.7) g/dL - ABG Interpretation ABG results: PT/INR, D-dimer PT 10.7 Seconds (9.4-12.1) 01/31/18 13:56 - Impressions Impressions Echocardiogram 02/02/18 09:00 Impressions: LVEF is probably normal Technically sub-optimal due to body habitus. No significant valvular dysfunction. Left Ventricular Wall Motion: Rest Echo Findings All visualized wall segments showed normal motion. Findings: ECG Findings * Normal sinus rhythm. Left Ventricle * LVEF is probably normal * Normal left ventricular diastolic function. Right Ventricle * Normal right ventricular structure and function. Aortic Valve * Trileaflet aortic valve with normal function. Mitral Valve * Normal mitral valve structure and function. Aorta * Normally sized aortic root. Pericardium * The pericardium appears normal. Left Atrium * Mildly dilated left atrium. Tricuspid Valve * Trace tricuspid regurgitation. * No tricuspid stenosis. * Unable to estimate RVSP due to lack of TR jet. Pulmonic Valve * Pulmonic valve is not well visualized. * No pulmonic stenosis. * No pulmonic regurgitation. Study Quality * Technically sub-optimal due to body habitus. IVC * The IVC is not well evaluated. Interatrial Septum * Interatrial septum not well evaluated. Right Atrium * Right atrium is not well visualized. - Attending Attestation Increase metformin to 1000 mg in the morning and 500 mg in the afternoon for 1 week, if the patient tolerates ir, may increase to 1000 mg BID I examined this patient and my medical decision-making was reviewed with the Resident Physician. I agree with the documented findings, disposition and treatment plan as described except to the extent set forth below.
[2018-02-02] MEDS ORDERED: Aspirin 81 MG TAB.CHEW PO SCH (09:00)
--- NOTE | 2018-02-02 10:54 | Discharge Summary ---
- NOTES TO OUTPATIENT PROVIDER Notes to Outpatient Provider: Per Internal Medicine (Dr. Ben oCstello): Effexor taper schedule: 75 mg daily starting today for the next 14 days, then taper down to 37.5 mg daily for 14 days before discontinuing. Diabetes management: Increase metformin to 1000 mg in AM and 500 mg in PM; if tolerates ( no GI symptoms); may increase to 1000 mg BID. Orders not resulted at time of discharge: Pending orders 01/31/18 16:19 ECG 12 lead ECG [ECG] Routine 02/01/18 15:49 EKG [ECG 12 lead ECG] [ECG] Routine Date of Encounter: 02/02/18 Time of Encounter: 10:30 - Discharge Diagnosis (1) STEMI (ST elevation myocardial infarction) Priority: Primary Status: Acute Comments: s/p PCI to LCx and OM Qualifiers: Involved coronary artery: left circumflex coronary artery Qualified Code(s) : I21.21 - ST elevation (STEMI) myocardial infarction involving left circumflex coronary artery (2) Depression Priority: Secondary Status: Chronic Comments: Effexor ? cause of VT. Recommend taper off Effexor (Effexor taper schedule: 75 mg daily starting today for the next 14 days, then taper down to 37.5 mg daily for 14 days before discontinuing). Further mgmt of depression (medical therapy) at discretion of I Provider Qualifiers: Depression Type: unspecified Qualified Code(s): F32.9 - Major depressive disorder, single episode, unspecified (3) Diabetes mellitus Priority: Secondary Status: Chronic Comments: Recommend increase of metformin to 1000 mg in AM and 500 mg PM. If tolerates, (no GI symptoms), increase to 1000 mg BID. 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 Qualifiers: Hypertension type: essential hypertension Qualified Code(s): I10 - Essential (primary) hypertension (5) Hyperlipidemia Priority: Secondary Status: Chronic Comments: Statin. Heart healthy diet. Qualifiers: Hyperlipidemia type: pure hypercholesterolemia Qualified Code(s): E78.00 - Pure hypercholesterolemia, unspecified; E78.0 - Pure hypercholesterolemia - Hospital Course Hospital course: Mr. Donald is a 47 year old incarcerated male who presented as acute lateral STEMI; underwent emergent PCI to LCx and OM. Per EMS, patient underwent defibrillation en route to [facility] ED for VT. He was admitted to the ICU and kept overnight, he was then stepped down to cardiopulmonary floor and has been stable. Labs, vital signs, and telemetry stable. No further VT or ectopy noted upon telemetry review. He denied further chest pain or discomfort since PCI. TTE reviewed, LVEF normal, no obvious valvular dysfunction noted; of note, was a poor quality study due to body habitus. No issues with right groin cath site, no hematoma present. Site soft, and open to air. +2 DP/PT pulses. Internal medicine consulted as inpatient for diabetes management and also recommendation regarding Effexor taper (? VT). Further medical therapy for depression at discretion of Physician/provider at [facility]. Taper will be completed in 14 days. May resume Metformin on 02/03/18 at increased dose of 1000 mg (2 tabs) in AM and 500 mg in PM. Post PCI discharge instructions discussed including importance of uninterrupted DAPT (asa + brilinta) for a minimum of 1 year following TARA placement. Care of cath site discussed. x2 guards were present at time of discharge instructions. Discussed patient with Dr. Alvarez (interventionalist who performed C) and also Dr. Barrett. No further inpatient testing recommended. Mr. Donald is being discharged today in stable condition. Will arrange for outpatient follow-up in 5-7 days at [facility]. - Time Spent with Patient Total time spent providing and/or coordinating discharge services: 30 minutes Specific discharge activities: Per post PCI discharge instructions/guidelines. Please provide written copy for patient upon discharge. May shower. No heavy lifiting >5lbs for 5-7 days. Keep cath site clean and dry until healed. - Discharge Medications Prescriptions: Nitroglycerin 0.4 mg SL Q5MIN PRN #30 tab.subl PRN Reason: Chest Pain Aspirin 81 mg PO DAILY #30 tab.chew Atorvastatin [Lipitor] 40 mg PO HS #30 tablet Carvedilol [Coreg] 3.125 mg PO BIDWM #60 tablet Lisinopril [Zestril] 2.5 mg PO DAILY #30 tablet Ticagrelor [Brilinta] 90 mg PO BID #60 tablet Home Medications: Allopurinol [Zyloprim 100 MG] 100 mg PO DAILY 02/01/18 [History] Aspirin 81 mg PO DAILY #30 tab.chew 02/02/18 [Rx] Atorvastatin [Lipitor] 40 mg PO HS #30 tablet 02/02/18 [Rx] Carvedilol [Coreg] 3.125 mg PO BIDWM #60 tablet 02/02/18 [Rx] Lisinopril [Zestril] 2.5 mg PO DAILY #30 tablet 02/02/18 [Rx] Nitroglycerin 0.4 mg SL Q5MIN PRN #30 tab.subl 02/02/18 [Rx] Ticagrelor [Brilinta] 90 mg PO BID #60 tablet 02/02/18 [Rx] Venlafaxine [Effexor] 75 mg PO DAILY tablet 02/02/18 [Rx] metFORMIN [Glucophage] 500 mg PO BID #0 02/02/18 [Rx] Allergies/Adverse Reactions: 3 Allergy/AdvReac Type Severity Reaction Status Date / Time No Known Allergies Allergy Verified 01/31/18 13:57 Date of admission: 01/31/18 13:49 Primary care physician: PCP NONE Consults: 01/31/18 16:19 Consult to Cardiac Rehabilitation-Phase1 [CONS] Routine Comment: Reason for Consult: AMI Call Completed: Yes Consult to Nurse Navigator [CONS] Routine Comment: 01/31/18 16:26 Consult to Hospitalist [CONS] Routine Consulting Provider: Hospitalist Elodia Reason for Consult: diabetic management Call Completed: No Discharging clinician: Chrissy Fink Anticipated date of discharge: 02/02/18 Physical Examination General: Conversant, No Apparent Distress HEENT: Atraumatic, Normocephaly, Mucus Membranes Moist Cardiac: Reg Rate and Rhythm, Normal S1 and S2 Lungs: Normal Breath Sounds Neuro: Alert and responsive Abdomen: Soft Skin: No rashes noted on visualized skin Musculoskeletal: No Chest Wall Tenderness Extremities: No Edema, Normal Pulses Other: right groin: no hematoma, bleeding or oozing noted. +2 DP/PT pulses. - Patient Status Disposition: Home, Self-Care Condition: Good Functional capacity at discharge: independent ambulation Overall status at discharge: patient is back to baseline - Discharge Instructions Follow Up With: NONE,PCP [Primary Care Provider] - Fred Alvarez, DO [Partnered Physician] - Additional Instructions: RISK FACTORS: STOP SMOKING: If you smoke, STOP. Smoking or tobacco use significantly increases your risk of heart disease because nicotine causes the arteries to narrow or constrict. It also causes fats to stick to the artery. Your chances of having a heart attack are greatly increased if you continue to smoke. For more information, call the education line for smoking cessation 7-960-LXFYTOG EAT A LOW FAT/CHOLESTEROL/SODIUM DIET: This diet may help reduce your chances of having a heart attack. LIFTING: Avoid lifting anything more than 10 pounds for 5-7 days Prior to straining, laughing, sneezing and/or coughing, apply manual pressure directly over insertion site. ACTIVITY: You may walk or climb stairs as tolerated You can resume sexual activity as tolerated In general, you are encouraged to engage in a minimum of 30 minutes or more of moderate intensity physical activity, such as brisk walking, daily or at least 3 -4 times weekly BATHING Do not submerge the site into water (bath tub, hot tub, swimming pool) for 1 week. This can be a source for infection into the blood stream. You may shower after 24 hours SITE CARE: After 24 hours, you may remove the dressing and leave the site open to air. Keep the site clean and dry. Clean gently and pat dry. You can expect bruising and tenderness that gradually resolve within a week or two. Return to work as instructed per your physician Resume driving as instructed per physician Keep all scheduled follow up appointments Resume medications as instructed IMPORTANT: If prescribed a Platelet Aggregation Inhibitor such as, Plavix, Brilinta or Effient: Duration of therapy is minimum one year These medications are often used in combination with Aspirin in prevention of future heart attacks Never discontinue unless consult with your System Controller STROKE (CVA) Risk factors for a stroke are: Age, cigarette smoking, diabetes, excessive alcohol consumption, family history, high blood pressure, overweight, physical inactivity, prior stroke, heart attack, diagnosis of carotid artery stenosis or other artery disease. Warning signs: Sudden numbness or weakness of the face, arm or leg; especially on one side of the body, sudden confusion, trouble speaking or understanding, sudden trouble seeing in one or both eyes, sudden trouble walking, dizziness, loss of balance or coordination, sudden severe headache with no cause. Call 911 or go to the Emergency Room. CONGESTIVE HEART FAILURE: If you have been diagnosed with Congestive Heart Failure (CHF) and your symptoms return, make an appointment with your physician Weigh yourself daily. Notify your physician if you have a weight gain of two or more pounds in one day or five or more pounds in one week. If you experience any difficulty breathing, please call 911 BLEEDING: Although the risk of bleeding is minimal, it can happen. If you have any bleeding from the site, apply firm pressure above the puncture site for 10-15 minutes. If the bleeding does not stop, continue manual pressure and call 911 Contact your physician if: You develop a fever greater than 101 degrees Fahrenheit Your site becomes reddened or has any drainage You have an increase in pain or burning at the site or if a large knot forms at the site. If you experience chest pain, shortness of breath, dizziness, or extreme tiredness, stop the activity and rest. Please notify your physicians office if you experience any of these symptoms and they are not relieved by rest please call 911! - Diet and Activity Activity: increase activity as tolerated (per post PCI guidelines. ) Diet: low fat, low cholesterol, low salt diet
--- NOTE | 2018-02-02 14:42 | Electrocardiograph Report ---
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
--- NOTE | 2018-02-02 14:42 | Electrocardiograph Report ---
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
== END 2018-02-02 12:11 | disposition home or self-care (01) | DRG 246 ==
LOC: EMEROO 13:37 → ICNU 13:49 → SUATTDRO 13:49 → ICNU 14:00 → 2NENU 02-01 11:43
PROVIDERS: ADMIT Internal Medicine Cardiovascular Disease; ATTEND Internal Medicine